=== PATIENT | male | born 1940 | race Caucasian/White ===

== ENCOUNTER 2021-09-09 11:10 | Inpatient (IN) ==
[2021-09-09] MEDS ORDERED: DEXAMETHASONE SOD INJ 4 MG/ML VIAL IV STA (11:49)
--- NOTE | 2021-09-09 11:51 | Emergency Department Note ---
Impression & Plan 2019 novel coronavirus-infected pneumonia (NCIP), Respiratory failure ED Provider Note Provider: Chaparro Jiménez MD DATE OF SERVICE: 09/09/2021 CHIEF COMPLAINT: Shortness of breath, weakness HISTORY OF PRESENT ILLNESS: Patient is a 80-year-old gentleman past medical history including asthma/COPD normally on 2 L of oxygen seen here 2 days ago and diagnosed with Covid pneumonia. Has been on increasing oxygen at the present and was on 10 L nasal cannula oxygen there with hypoxia developing today. Patient endorses some diffuse myalgias. Patient states he cannot tolerate a facemask for oxygen. States he has been eating and drinking less reports some diarrhea as well as loss of taste and smell. No syncope or trauma reported. No leg swelling reported. Patient has been on a course of steroids for the last several days. REVIEW OF SYSTEMS: A total of 10 review of systems was obtained and negative except as stated above in the HPI. PAST MEDICAL HISTORY: As noted above MEDICATIONS: Reviewed home medication list includes recent addition of steroids. SOCIAL HISTORY: Former smoker, long term inmate PHYSICAL EXAM: GENERAL: alert and oriented in no acute distress on stretcher fatigued in appearance guards present Head: normocephalic and atraumatic EYES: No injection, discharge or icterus. NECK: Trachea midline. ENT: Mucous membranes pink and moist. LUNGS: Airway patent. No retractions. Breath sounds clear with good air entry bilaterally. HEART: Regular rate and rhythm. No chest wall tenderness ABDOMEN: Soft and non-tender, without guarding or rebound. SKIN: Acyanotic, warm, dry EXTREMITIES: Without swelling, tenderness or deformity NEUROLOGICAL: No focal deficits moving all extremities No aphasia. No facial droop or slurred speech. EK bpm normal sinus rhythm. No PVC or PAC. No acute ST segment elevation noted with some nonspecific anterior T wave changes. QTC 411. CONTINUOUS CARDIAC MONITORING: was ordered and showed a heart rate of 70s-90s bpm in NSR Patient's laboratory studies and imaging reviewed. Differential includes Reactive airway disease, pneumonia, pneumothorax, COPD, CHF, infections, cardiac ischemia, pulmonary embolism, musculoskeletal, gastrointestinal, as well as other pathologies. IMPRESSION/MEDICAL DECISION MAKING: Patient recently diagnosed with Covid pneumonia. Was previously vaccinated. History of chronic underlying lung disease and oxygen usage. Symptoms been ongoing for 4 to 5 days at this time. Patient initially resist any mask usage and on significant nasal cannula oxygen. Discussed with respiratory availab ility of high flow oxygen. Chest x-ray and basic labs sent. CRP and D-dimer sent. No white blood cell count elevation. D-dimer minimally elevated but given the constellation of symptoms lives all the likely related to Covid and lower suspicion for PE given the clinical history and patient exam. Procalcitonin not significantly elevated. Troponin detectable and abnormal. Not having active chest pain. Chest x-ray for some inflammatory changes. Patient confirmed to be full code. Patient reports he would not tolerate a mask and as such high flow nasal cannula was implemented. Patient requires admission for further care. Given dexamethasone here additionally through the IV. Hospitalist was consulted. DIAGNOSIS: COVID-19 pneumonia, hypoxia DISPOSITION: Hospitalist will evaluate Patient was agreeable with this plan. Critical Care I have personally spent 33 minutes of critical care time in the direct management of this patient. This includes bedside care, interpretation of diagnostic studies, and testing, discussion with consultants, patient,, and ot her required patient management activities. These 33 minutes is in excess of all separately billable procedures. Past Med/Surg History Medical History (Updated 09/09/21 @ 16:08 by Chaparro Jiménez M.D.) Allergic rhinitis Benign hypertension Depression Dermatitis Extrinsic asthma Hyperlipidemia Reducible left inguinal hernia repaired x 2 Surgical History Hx of cholecystectomy Hx of right inguinal hernia repair Status post hernia repair Left Open Incarcerated Inguinal Hernia Repair with Mesh (Left) - Rohit Jimenez, DO, FAC Social History Smoking Status: Former smoker Tobacco Type: Cigarettes packs per day: 0.5; Years Smoked: 2; Hx Alcohol Use: No Hx Substance Use: No Preferred Language: Mozambican Current Living Situation: Other Current Living Situation Comment: Inmate Feels Safe at Home: Yes Allergies Allergies Allergy/AdvReac Type Severity Reaction Status Date / Time Penicillins Allergy Unknown ON SCI Verified 09/09/21 13:01 [facility] MED LIST Home Meds Home Medications Medication Instructions Recorded Confirmed atorvastatin 10 mg tablet 10 mg PO QAM 11/11/20 09/09/21 montelukast 10 mg tablet 10 mg PO QAM 11/11/20 09/09/21 sertraline 50 mg tablet 50 mg PO QAM 11/11/20 09/09/21 aspirin 81 mg chewable tablet 81 mg PO DAILY 09/07/21 09/09/21 levalbuterol tartrate 45 2 inh INHALATION QID PRN 09/07/21 09/09/21 mcg/actuation aerosol inhaler (Xopenex HFA) cholecalciferol (vitamin D3) 25 25 mcg PO QAM 09/09/21 09/09/21 mcg (1,000 unit) tablet (Vitamin D3) dexamethasone 6 mg tablet 6 mg PO QAM 09/09/21 09/09/21 zinc sulfate 50 mg zinc (220 mg) 50 mg PO BID 09/09/21 09/09/21 capsule (Zinc-220) Previous Rx's Medication Instructions Recorded ondansetron 4 mg disintegrating 4 mg PO Q6H PRN #14 tab 09/07/21 tablet Results & Data (ED) Vital Signs Vital Signs - 24 hr 09/09/21 10:56 09/09/21 11:37 09/09/21 11:50 Temperature 37.4 C 37.4 C Temperature Source Oral Oral Pulse Rate 91 H 91 H Pulse Rate [Right Finger] 91 H Pulse Rhythm Regular Pulse Rhythm [Right Finger] Regular Pulse Strength [Right Finger] Normal Respiratory Rate 24 18 20 Respiratory Effort / Characteristics Non-Labored Spontaneous Respiratory Depth Normal Blood Pressure 146/86 H Blood Pressure [Left Arm] 146/86 H Blood Pressure Mean 106 Blood Pressure Mean [Left Arm] 106 Blood Pressure Position [Left Arm] Lying Pulse Oximetry 88 L 70 L 71 L Oxygen Delivery Method Nasal Cannula Room Air Room Air Oxygen Flow Rate 10 Fraction of Inspired Oxygen Sepsis Recent Fever Within 48 Hours Yes Sepsis New/Unexplained Change in Mental Status No Sepsis Action Taken by Nursing No Action Required 09/09/21 11:55 09/09/21 12:56 Temperature Temperature Source Pulse Rate Pulse Rate [Right Finger] 88 85 Pulse Rhythm Pulse Rhythm [Right Finger] Pulse Strength [Right Finger] Respiratory Rate 24 24 Respiratory Effort / Characteristics Respiratory Depth Blood Pressure Blood Pressure [Left Arm] 127/71 Blood Pressure Mean Blood Pressure Mean [Left Arm] 89 Blood Pressure Position [Left Arm] Pulse Oximetry 93 90 Oxygen Delivery Method High Flow Nasal Cannula High Flow Nasal Cannula Oxygen Flow Rate 40 Fraction of Inspired Oxygen 100 Sepsis Recent Fever Within 48 Hours Sepsis New/Unexplained Change in Mental Status Sepsis Action Taken by Nursing Laboratory Data Result diagrams: 09/09/21 11:27 09/09/21 11:27 Lab Results 09/09/21 09/09/21 09/09/21 Range/Units 11:27 11:27 11:27 WBC 7.28 (4.8-10.8) K/uL RBC 5.41 (4.7-6.1) M/uL Hgb 16.6 D (14.0-18.0) g/dL Hct 47.9 (42-52) % MCV 88.5 (80-100) fL MCH 30.7 (25-34) pg MCHC 34.7 (32-36) g/dL RDW Std Deviation 45.4 (36.4-46.3) fL RDW Coeff of Ronald 13.8 (11.5-14.5) % Plt Count 140 (130-400) K/uL MPV 11.3 H (7.4-10.4) fL Immature Gran % (Auto) 0.1 % Neut % (Auto) 92.1 % Lymph % (Auto) 4.5 % Orange % (Auto) 3.3 % Eos % (Auto) 0.0 % Baso % (Auto) 0.0 % Neut # (Auto) 6.70 H (1.4-6.5) K/uL Lymph # (Auto) 0.33 L (1.2-3.4) K/uL Orange # (Auto) 0.24 (0.11-0.59) K/uL Eos # (Auto) 0.00 (0-0.5) K/uL Baso # (Auto) 0.00 (0-0.2) K/uL Immature Gran # (Auto) 0.01 (0.00-0.02) K/uL PT 10.3 (9.0-12.0) Seconds INR 1.0 (0.9-1.1) D-Dimer 990 H* (0-500) ug/L FEU Sodium 138 (136-145) mmol/L Potassium 4.6 (3.5-5.1) mmol/L Chloride 109 H (98-107) mmol/L Carbon Dioxide 23 (21-32) mmol/L Anion Gap 6.0 (3-11) BUN 35 H (7-18) mg/dl Creatinine 1.30 (0.6-1.4) mg/dl Est Cr Clr Drug Dosing 48.3 ml/min Est GFR ( Amer) 59.7 ml/min Est GFR (Non-Af Amer) 51.5 ml/min BUN/Creatinine Ratio 27.3 H (10-20) Glucose 120 H (70-99) mg/dl Calcium 9.1 D (8.5-10.1) mg/dl Magnesium 2.6 H (1.8-2.4) mg/dl Total Bilirubin 0.6 (0.2-1) mg/dl AST 53 H (15-37) U/L ALT 41 (12-78) Alkaline Phosphatase 70 (45-117) U/L Total Creatine Kinase 177 (39-308) U/L Troponin I 0.039 (0-0.045) ng/ml C-Reactive Protein 7.34 H (0-0.29) mg/dl Total Protein 7.6 D (6.4-8.2) gm/dl Albumin 3.1 L (3.4-5.0) gm/dl Globulin 4.5 H (2.5-4.0) gm/dl Albumin/Globulin Ratio 0.7 L (0.9-2) Procalcitonin (0-0.5) ng/ml TSH 1.110 (0.300-4.500) uIu/ml Specimen Hemolysis 09/09/21 Range/Units 11:27 WBC (4.8-10.8) K/uL RBC (4.7-6.1) M/uL Hgb (14.0-18.0) g/dL Hct (42-52) % MCV (80-100) fL MCH (25-34) pg MCHC (32-36) g/dL RDW Std Deviation (36.4-46.3) fL RDW Coeff of Ronald (11.5-14.5) % Plt Count (130-400) K/uL MPV (7.4-10.4) fL Immature Gran % (Auto) % Neut % (Auto) % Lymph % (Auto) % Orange % (Auto) % Eos % (Auto) % Baso % (Auto) % Neut # (Auto) (1.4-6.5) K/uL Lymph # (Auto) (1.2-3.4) K/uL Orange # (Auto) (0.11-0.59) K/uL Eos # (Auto) (0-0.5) K/uL Baso # (Auto) (0-0.2) K/uL Immature Gran # (Auto) (0.00-0.02) K/uL PT (9.0-12.0) Seconds INR (0.9-1.1) D-Dimer (0-500) ug/L FEU Sodium (136-145) mmol/L Potassium (3.5-5.1) mmol/L Chloride (98-107) mmol/L Carbon Dioxide (21-32) mmol/L Anion Gap (3-11) BUN (7-18) mg/dl Creatinine (0.6-1.4) mg/dl Est Cr Clr Drug Dosing ml/min Est GFR ( Amer) ml/min Est GFR (Non-Af Amer) ml/min BUN/Creatinine Ratio (10-20) Glucose (70-99) mg/dl Calcium (8.5-10.1) mg/dl Magnesium (1.8-2.4) mg/dl Total Bilirubin (0.2-1) mg/dl AST (15-37) U/L ALT (12-78) Alkaline Phosphatase (45-117) U/L Total Creatine Kinase (39-308) U/L Troponin I (0-0.045) ng/ml C-Reactive Protein (0-0.29) mg/dl Total Protein (6.4-8.2) gm/dl Albumin (3.4-5.0) gm/dl Globulin (2.5-4.0) gm/dl Albumin/Globulin Ratio (0.9-2) Procalcitonin 0.14 (0-0.5) ng/ml TSH (0.300-4.500) uIu/ml Specimen Hemolysis Administered Medications Discontinued Medications Dexamethasone (Dexamethasone Sod Inj 4 Mg/Ml Vial) 6 mg IV NOW STA Stop: 09/09/21 11:50 Last Admin: 09/09/21 12:12 Dose: 6 mg Documented by: [id number] Dexamethasone (Dexamethasone Sod Inj 4 Mg/Ml Vial) Confirm Administered Dose 4 mg .ROUTE .STK-MED ONE Stop: 09/09/21 14:50 Last Admin: 09/09/21 14:52 Dose: 4 mg Documented by: [id number] Dexamethasone 4 mg/ Syringe 1 mls @ 1 mls/min IV ONE ONE Stop: 09/09/21 13:34 Last Admin: 09/09/21 15:08 Dose: Not Given Documented by: [id number] Imaging Data Radiologist's Impression: Chest X-Ray 09/09/21 11:37 XR chest 1V portable CLINICAL HISTORY: weakness COMPARISON STUDY: Chest radiograph September 07, 2021. FINDINGS: No pneumothorax or pleural effusion is noted. There is severe emphysema. There is also possible underlying pulmonary fibrosis. Extensive bilateral mid and lower lung airspace opacities have increased since exam of September 07, 2021. IMPRESSION: Increase in bilateral mid and lower lung airspace opacities which favor pneumonia superimposed upon emphysema. Radiographic follow-up to ensure resolution is recommended. ACT 112: Negative or not required by law. Electronically signed by: Chace Latif M.D. 09/09/2021 12:22 PM Discharge Plan Visit Data Chief Complaint: Shortness of Breath/Dyspnea ED Provider: Chaparro Jiménez Discharge Problem: 2019 novel coronavirus-infected pneumonia (NCIP), Respiratory failure Patient Disposition: Admitted As Inpatient Discharge Instructions Interventions: ED Discharge Assessment Last Done: 09/09/21 15:51
[2021-09-09 11:59] LABS: Prothrombin Time 10.3 Seconds (9.0-12.0)
[2021-09-09 12:02] LABS: Hematocrit (blood only) 47.9 % (42-52); Hemoglobin 16.6 g/dL (14.0-18.0); Mean Corpuscular Hemoglobin 30.7 pg (25-34); Mean Corpuscular Hgb Conc 34.7 g/dL (32-36); Mean Corpuscular Volume 88.5 fL (80-100); Mean Platelet Volume 11.3 fL (7.4-10.4); Platelet Count 140 K/uL (130-400); RDW Coefficient of Variation 13.8 % (11.5-14.5); RDW Standard Deviation 45.4 fL (36.4-46.3); Red Blood Count 5.41 M/uL (4.7-6.1); White Blood Count 7.28 K/uL (4.8-10.8)
[2021-09-09 12:07] LABS: Albumin Level 3.1 gm/dl (3.4-5.0); BUN Creatinine Ratio 27.3 (10-20); Calcium 9.1 mg/dl (8.5-10.1); Creatinine Clr Calc Pharmacy 48.3 ml/min; Est GFR (African American) 59.7 ml/min; Est GFR (Non-African American) 51.5 ml/min; Magnesium 2.6 mg/dl (1.8-2.4); Potassium 4.6 mmol/L (3.5-5.1)
[2021-09-09 12:17] LABS: Immature Granulocytes # (auto) 0.01 K/uL (0.00-0.02); Immature Granulocytes % (auto) 0.1 %; Lymphocytes # (auto) 0.33 K/uL (1.2-3.4); Lymphocytes % (auto) 4.5 %; Monocytes # (auto) 0.24 K/uL (0.11-0.59); Monocytes % (auto) 3.3 %; Neutrophils % (auto) 92.1 %
[2021-09-09 12:18] LABS: Albumin Globulin Ratio 0.7 (0.9-2); Bilirubin,Total 0.6 mg/dl (0.2-1); C Reactive Protein 7.34 mg/dl (0-0.29); Globulin 4.5 gm/dl (2.5-4.0); Thyroid Stimulating Hormone 1.11 uIu/ml (0.300-4.500); Total Protein 7.6 gm/dl (6.4-8.2); Troponin I 0.039 ng/ml (0-0.045)
--- NOTE | 2021-09-09 12:24 | XRay Report ---
XR chest 1V portable CLINICAL HISTORY: weakness COMPARISON STUDY: Chest radiograph September 07, 2021. FINDINGS: No pneumothorax or pleural effusion is noted. There is severe emphysema. There is also poss ible underlying pulmonary fibrosis. Extensive bilateral mid and lower lung airspace opacities have in creased since exam of September 07, 2021. IMPRESSION: Increase in bilateral mid and lower lung airspace opacities which favor pneumonia superimposed upon e mphysema. Radiographic follow-up to ensure resolution is recommended. ACT 112: Negative or not required by law. Electronically signed by: Chace Latif M.D. 09/09/2021 12:22 PM
[2021-09-09 12:34] LABS: D Dimer 990 ug/L FEU (0-500)
--- NOTE | 2021-09-09 13:15 | History & Physical Report ---
Date of Service September 09, 2021 Assessment & Plan (1) Pneumonia due to COVID-19 virus: Plan: Due to the patient's worsening symptomatology and increasing oxygen requirements he will be admitted to the hospital. We will proceed as follows: We will place patient on a monitored bed We will follow serial labs We we will check a CRP tomorrow morning and based on these results may implement baricitinib We will maintain the patient on high flow oxygen titrating this based on his pulse oximetry (goal will be to maintain pulse ox 90% or greater) We will request a pulmonary consultation We will continue the patient on Decadron but increase to 10 mg intravenously daily; he has received 6 mg of intravenous Decadron thus far in the emergency department so we will administer an additional 4 mg at this time We will place the patient on Covid isolation precautions We will utilize bronchodilators as needed--budesonide nebulizers have been ordered We will utilize BiPAP at HS to help with alveolar recruitment While at the bedside I did discuss with the patient CODE STATUS and I specifically discussed with him if his respiratory status would deteriorate if he would prefer we utilize mechanical ventilation and he says he would be in favor of this. He will therefore be a level 1 full code We will utilize Lovenox for DVT prevention (2) Acute and chronic respiratory failure with hypoxia: (3) Hyperlipidemia: (4) Atopic dermatitis: History of Present Illness Chief Complaint: Shortness of breath Primary Care Provider: NEHAL López This is an 80-year-old male who presents to [facility] emergency department from a correctional facility. Patient was previously seen in the emergency department on 09/07/21 complaining of worsening shortness of breath along with nausea, vomiting, and diarrhea. Patient does note that the symptoms have been ongoing for several months but he does note that over the past approximately 2 to 3 weeks his symptoms have become worse. He was seen in the emergency department at the aforementioned date where he was tested for COVID-19 and was noted to be positive. Labs on this day include a CBC her white blood cell count was 3.1. His hemoglobin and hematocrit were 13.6 and 39.6 respectively. Platelet count was low at 102,000 a chemistry profile showed a sodium of 142. Potassium was noted to be 4.5, BUN was slightly elevated at 30 and his creatinine was noted to be within normal range. A chest x-ray at this time showed moderate to extensive bilateral airspace opacities compatible with pneumonia. During his visit emergency department the patient did receive nebulizers, guaifenesin, and Solu-Medrol. Clinical improvement was noted and it was felt the patient was stable for discharge back to his correctional facility. He was discharged with Decadron 6 mg daily. Patient represented to the emergency department today secondary to worsening shortness of breath. The patient has been having increasing oxygen requirements and was on as many as 10 L via nasal cannula with worsening hypoxia noted and therefore he was sent back to the emergency department. I questioned the patient on numerous symptoms and he does not note any fevers. He says he does have shortness of breath along with some pleuritic chest pain. He denies any cough. At the present time he denies any abdominal pain and he also denies any nausea, vomiting, or diarrhea. A chest x-ray today showed increase in bilateral lower lung space airspace opacities compatible with pneumonia. Labs today included a CBC were white blood cell count, hemoglobin, hematocrit, and platelet count were all within normal range. Chemistry profile did show his sodium, potassium, and creatinine were within normal range. A CRP was performed and was noted to be 7.34 Since arrival to the emergency department the patient has been placed on high flow oxygen and he has been given 6 mg of intravenous Decadron. Due to his worsening symptomatology and increasing oxygen reqirements admission was recommended. At the time of my interview the patient was resting in bedside. He did not appear to be in any overt distress at the time of my interview and was able to converse with me without becoming markedly dyspneic. Allergies Allergy/AdvReac Type Severity Reaction Status Date / Time Penicillins Allergy Unknown ON SCI Verified 09/09/21 13:01 [facility] MED LIST Home Medications Medication Instructions Recorded Confirmed Type atorvastatin 10 mg tablet 10 mg PO QAM 11/11/20 09/09/21 History montelukast 10 mg tablet 10 mg PO QAM 11/11/20 09/09/21 History sertraline 50 mg tablet 50 mg PO QAM 11/11/20 09/09/21 History aspirin 81 mg chewable tablet 81 mg PO DAILY 09/07/21 09/09/21 History levalbuterol tartrate 45 2 inh INHALATION QID PRN 09/07/21 09/09/21 History mcg/actuation aerosol inhaler (Xopenex HFA) ondansetron 4 mg disintegrating 4 mg PO Q6H PRN #14 tab 09/07/21 09/09/21 Rx tablet cholecalciferol (vitamin D3) 25 25 mcg PO QAM 09/09/21 09/09/21 History mcg (1,000 unit) tablet (Vitamin D3) dexamethasone 6 mg tablet 6 mg PO QAM 09/09/21 09/09/21 History zinc sulfate 50 mg zinc (220 mg) 50 mg PO BID 09/09/21 09/09/21 History capsule (Zinc-220) Past Med/Surg History Medical History (Updated 09/09/21 @ 15:19 by Wei Ruff MD) Allergic rhinitis Benign hypertension Depression Dermatitis Extrinsic asthma Hyperlipidemia Reducible left inguinal hernia repaired x 2 Surgical History Hx of cholecystectomy Hx of right inguinal hernia repair Status post hernia repair Left Open Incarcerated Inguinal Hernia Repair with Mesh (Left) - Rohit Jimenez, DO, FAC Social History Smoking Status: Former smoker Tobacco Type: Cigarettes packs per day: 0.5; Years Smoked: 2; Hx Alcohol Use: No Hx Substance Use: No Preferred Language: Lithuanian Current Living Situation: Other Current Living Situation Comment: Inmate Feels Safe at Home: Yes Review of Systems Constitutional: + body aches and + fatigue; no fever and no chills Eyes: no diplopia Ear, Nose, Mouth, Throat: no ear pain and no sore throat Respiratory: + dyspnea and + pain on inspiration; no cough Cardiovascular: no chest pain Gastrointestinal: no abdominal pain Genitourinary: no dysuria Musculoskeletal: no back pain Integumentary: no rash Neurologic: no localized weakness Physical Exam Constitutional: well developed and well nourished; no acute distress Eyes: no conjunctival abnormality ENMT: Ears: + hearing impairment Dry mucous membranes noted Neck: trachea midline No JVD Respiratory: Breath sounds are present bilaterally with an occasional expiratory wheeze. Patient was not using accessory muscles to aid in respiration. He was utilizing high flow oxygen via nasal cannula at the time of my interview. Sounds were noted to be slightly decreased at the bases. Cardiovascular: Rate/Rhythm: regular rate and regular rhythm Gastrointestinal (Abdomen): Abdomen is rotund but soft. There is no pain with palpation Musculoskeletal: No calf tenderness. Trace lower extremity edema is noted. Skin: no rashes Neurologic: moves all extremities Psychiatric: A+Ox3, euthymic affect Results & Data Results & Data ([facility]) Vital Signs (Past 12 Hours) Vital Signs Temp Pulse Pulse Resp BP BP Pulse Ox 09/09/21 11:55 88 24 93 09/09/21 11:50 37.4 C 91 H 20 146/86 H 71 L 09/09/21 11:37 91 H 18 70 L 09/09/21 10:56 37.4 C 91 H 24 146/86 H 88 L Diagnostic Findings XR chest 1V portable CLINICAL HISTORY: weakness COMPARISON STUDY: Chest radiograph September 07, 2021. FINDINGS: No pneumothorax or pleural effusion is noted. There is severe emphysema. There is also possible underlying pulmonary fibrosis. Extensive bilateral mid and lower lung airspace opacities have increased since exam of September 07, 2021. IMPRESSION: Increase in bilateral mid and lower lung airspace opacities which favor pneumonia superimposed upon emphysema. Radiographic follow-up to ensure resolution is recommended. Medications Administered ER Medications Given: Dexamethasone 10mg IV Code Status & VTE Plan Code Status Full VTE Prophylaxis Plan VTE Prophylaxis will be ordered: Yes Supervising Physician Co-Signing Physician Notes I personally saw and examined the patient. I verified all macdonald points and agree with Adam Villanueva PA-C with the following exceptions and/or additions: Ricky Rao is an 80 year old male who presents to the ER with acute hypoxic respiratory failure due to COVID-19 pneumonia. He is vaccinated with [employer] Josse vaccination in January 2021. SARS/COV-2 test positive on 09/05/21. Unfortunately the patient is unable to give an accurate history as he feels he has been unwell with COVID for last 6 months however does report starting to have fevers on 09/05. Associated diarrhea. Per discussion with [facility] first day of illness was when he was tested on 09/05/21. O/E Dry mucus membranes, HS 1+2, no murmurs, trace peripheral edema, poor air entry to bases, no wheezing, abdomen SNT EKG - TW flattening replaced TWI in anterior leads A/P Acute on chronic hypoxic respiratory failure - 2LPM O2 at baseline. Continue on high flow, currently maintaining saturations > 88% on 40LPM O2, FiO2 100%. ABG pending. Prone as able. Given high risk of intubation will consult pulmonology to optimize patient treatment. No indication for antibiotics. COVID-19 pneumonia - after discussion with pulmonology given CRP close to 7.5 recommending baricitinib. Will continue dexamethasone 6mg IV daily (started 09/07). Procalcitonin negative. Atopic dermatitis - no need for topical steroids while on dexamethasone Depression/anxiety - continue sertraline 50mg PO daily Extrinsic asthma / COPD - no acute exacerbation suspected. Start budesonide nebilizers BID. I also personally had code status conversation with the patient given high risk of intubation and he wished to be for full resuscitation at this time. PG Care Time/CCT Total # of Minutes Spent Total Time Spent with Patient: Total time spent is greater than 50% in coordination of care (as documented) at patient's floor/unit and/or counseling patient: Coding Level of Care Code 84865 Initial Inpt Care Lvl 3 Diagnoses Pneumonia due to COVID-19 virus U07.1; J12.82 Hyperlipidemia E78.5 Atopic dermatitis L20.9 Acute and chronic respiratory failure with hypoxia J96.21
[2021-09-09] MEDS ORDERED: dexAMETHasone 4 MG in SYRINGE 0 ML IV ONE (13:33)
--- NOTE | 2021-09-09 14:02 | Pulmonary Consultation ---
Date of Consultation September 09, 2021 Assessment & Plan (1) Pneumonia due to COVID-19 virus: COVID 19 pneumonia - does not appear to have co-infection at this time secondary to normal WBC, NLR, and PCT - Decadron 6mg IV daily - Adding Barcitinib now is OK - CPAP/BiPAP at night - HFNC wean to support SPO2 88-92% (2) COPD (chronic obstructive pulmonary disease): COPD- Scheduled nebulizers with levalbuterol, continue with Pulmicort Respules nebs q12, added Anoro elipta 6.25/25 - steroids as above - no role for Azithromycin at this time as he does not have hx of multiple exacerbations (3) Hypoxia: Hypoxia with respiratory failure - Support as above - High likelihood of intubation with underlying lung disease (4) Hyperlipidemia: History of Present Illness Reason for Consultation: COVID 19, COPD, Hypoxia Requesting Physician: Dr. Ruff Attending Physician: Dr. Ruff History of Present Illness 80 YOM prisoner with past pulmonary history of: COPD, Emphysema, Previous smoker quit 4 years ago, ? underlying fibrosis. Patient comes to the hospital today for worsening dyspnea and hypoxia. He was diagnosed with COVID 19 on 09/07/21, but reportedly was in the enfirmery for a few days prior to that. Patient is unable to voice when he actually started feeling worse. For his COPD the patient was on Levalbuterol inhalers and Montelukast and on 2L NC. He denies ever being hospitalized because of his COPD. He has noted increase in dyspnea and oxygen requirements. He endorses that he has increased cough, but no change in his sputum. Patient is currently on HFNC at 40L with 100% FIo2 with SPO2 90%. He is not overtly dyspneic but noted with bilateral opacities on his CXR. He may have an underlying fibrosis or ILD but difficult to tell with COVID and his Emphysema. His CRP is borderline at 7.3 and will likely be > by tomorrow, he is Afebrile, and PCT is negative. Recommendations: Baricitinib, Decrease Decadron back to 6mg, CPAP/BIPAP overnight to prevent de-recruitment, Spo2 goal 88-92%, Agree with Pulmicort Respules, scheduled nebulizers, and will add on Anoro Elipta. We will follow as he has a high likelihood of intubation. Allergies Allergy/AdvReac Type Severity Reaction Status Date / Time Penicillins Allergy Unknown ON SCI Verified 09/09/21 13:01 [facility] Home Medications Medication Instructions Recorded Confirmed Type atorvastatin 10 mg tablet 10 mg PO QAM 11/11/20 09/09/21 History montelukast 10 mg tablet 10 mg PO QAM 11/11/20 09/09/21 History sertraline 50 mg tablet 50 mg PO QAM 11/11/20 09/09/21 History aspirin 81 mg chewable tablet 81 mg PO DAILY 09/07/21 09/09/21 History levalbuterol tartrate 45 2 inh INHALATION QID PRN 09/07/21 09/09/21 History mcg/actuation aerosol inhaler (Xopenex HFA) ondansetron 4 mg disintegrating 4 mg PO Q6H PRN #14 tab 09/07/21 09/09/21 Rx tablet cholecalciferol (vitamin D3) 25 25 mcg PO QAM 09/09/21 09/09/21 History mcg (1,000 unit) tablet (Vitamin D3) dexamethasone 6 mg tablet 6 mg PO QAM 09/09/21 09/09/21 History zinc sulfate 50 mg zinc (220 mg) 50 mg PO BID 09/09/21 09/09/21 History capsule (Zinc-220) Patient History Medical History (Updated 09/09/21 @ 15:25 by JAC Bloom) Allergic rhinitis Benign hypertension Depression Dermatitis Extrinsic asthma Hyperlipidemia Reducible left inguinal hernia repaired x 2 Surgical History Hx of cholecystectomy Hx of right inguinal hernia repair Status post hernia repair Left Open Incarcerated Inguinal Hernia Repair with Mesh (Left) - Rohit Jimenez, DO, FAC Social History Smoking Status: Former smoker Tobacco Type: Cigarettes packs per day: 0.5; Years Smoked: 2; Hx Alcohol Use: No Hx Substance Use: No Preferred Language: Cymraes Current Living Situation: Other Current Living Situation Comment: Inmate Feels Safe at Home: Yes Review of Systems Review of Systems: REVIEW OF SYSTEMS: Constitutional: No fever, sweats or chills Eyes: No diplopia, no worsening or blurred vision ENT: normal hearing, no trouble swallowing Respiratory: (+) cough, sputum, dyspnea at rest or on exertion Cardiovascular: No chest pain, tightness or palpitations Abdomen: No pain, nausea, vomiting, diarrhea or constipation Musculoskeletal: (+) joint pain, calf pain, swelling Neurologic: No weakness, numbness/tingling, or balance problems Psychiatric: No anxiety or depression Skin: (+) scabs to abdomen Physical Exam Physical Exam: PHYSICAL EXAM: General: awake, alert, no apparent distress Head: Normocephalic, atraumatic ENT: PERRL, EOMI, no pharyngeal exudate, mucous membranes moist Neuro: AAO x 3, speech clear and appropriate, strength intact bilaterally 5/5, sensation intact and equal all extremities and dermatomes, no pronator drift Chest: equal rise and fall of the chest, fine crackles throughout lower lung serrato, no wheezing, decent air movement Cardiac: Regular rate and rhythm, telemetry reviewed, skin warm dry, cap refill <3 seconds, peripheral pulses +2 no JVD, no murmur, no edema GI: NABS x 4 quadrants, soft, nontender to palpation, no rebound, guarding or tenderness : Spontaneously voiding, no pain, no CVA tenderness, Extremities: Normal inspection, no peripheral edema or erythema, calfs nontender to palpation Psych: Normal mood and affect Skin: no rash or erythema Results & Data Results & Data ([facility]) Vital Signs (Past 12 Hours) Vital Signs Temp Pulse Pulse Resp BP BP Pulse Ox 09/09/21 12:56 85 24 127/71 90 09/09/21 11:55 88 24 93 09/09/21 11:50 37.4 C 91 H 20 146/86 H 71 L 09/09/21 11:37 91 H 18 70 L 09/09/21 10:56 37.4 C 91 H 24 146/86 H 88 L Laboratory Results Abnormal lab results 09/09/21 09/09/21 09/09/21 Range/Units 11:27 11:27 11:27 MPV 11.3 H (7.4-10.4) fL Neut # (Auto) 6.70 H (1.4-6.5) K/uL Lymph # (Auto) 0.33 L (1.2-3.4) K/uL D-Dimer 990 H* (0-500) ug/L FEU Chloride 109 H (98-107) mmol/L BUN 35 H (7-18) mg/dl BUN/Creatinine Ratio 27.3 H (10-20) Glucose 120 H (70-99) mg/dl Magnesium 2.6 H (1.8-2.4) mg/dl AST 53 H (15-37) U/L C-Reactive Protein 7.34 H (0-0.29) mg/dl Albumin 3.1 L (3.4-5.0) gm/dl Globulin 4.5 H (2.5-4.0) gm/dl Albumin/Globulin Ratio 0.7 L (0.9-2) Diagnostic Findings Chest X-Ray 09/09/21 11:37 XR chest 1V portable CLINICAL HISTORY: weakness COMPARISON STUDY: Chest radiograph September 07, 2021. FINDINGS: No pneumothorax or pleural effusion is noted. There is severe emphysema. There is also possible underlying pulmonary fibrosis. Extensive bilateral mid and lower lung airspace opacities have increased since exam of September 07, 2021. IMPRESSION: Increase in bilateral mid and lower lung airspace opacities which favor pneumonia superimposed upon emphysema. Radiographic follow-up to ensure resolution is recommended. ACT 112: Negative or not required by law. Electronically signed by: Chace Latif M.D. 09/09/2021 12:22 PM Medications Administered Home Medications atorvastatin 10 mg tablet 10 mg PO QAM 11/11/20 [History Confirmed 09/09/21] montelukast 10 mg tablet 10 mg PO QAM 11/11/20 [History Confirmed 09/09/21] sertraline 50 mg tablet 50 mg PO QAM 11/11/20 [History Confirmed 09/09/21] aspirin 81 mg chewable tablet 81 mg PO DAILY 09/07/21 [History Confirmed 09/09/21] levalbuterol tartrate 45 mcg/actuation aerosol inhaler (Xopenex HFA) 2 inh INHALATION QID PRN 09/07/21 [History Confirmed 09/09/21] ondansetron 4 mg disintegrating tablet 4 mg PO Q6H PRN #14 tab 09/07/21 [Rx Confirmed 09/09/21] cholecalciferol (vitamin D3) 25 mcg (1,000 unit) tablet (Vitamin D3) 25 mcg PO QAM 09/09/21 [History Confirmed 09/09/21] dexamethasone 6 mg tablet 6 mg PO QAM 09/09/21 [History Confirmed 09/09/21] zinc sulfate 50 mg zinc (220 mg) capsule (Zinc-220) 50 mg PO BID 09/09/21 [History Confirmed 09/09/21] Discontinued Medications Dexamethasone (Dexamethasone Sod Inj 4 Mg/Ml Vial) 6 mg IV NOW STA Stop: 09/09/21 11:50 Last Admin: 09/09/21 12:12 Dose: 6 mg Documented by: [id number] ECG Additional Comments: Normal sinus rhythm Left anterior fascicular block Cannot rule out Anterior infarct , age undetermined Abnormal ECG When compared with ECG of 07-SEP-2021 19:22, Nonspecific T wave abnormality has replaced inverted T waves in Anterior leads PG Care Time/CCT Total # of Minutes Spent Total Time Spent with Patient: Total time spent is greater than 50% in coordination of care (as documented) at patient's floor/unit and/or counseling patient: Coding Level of Care Code 73849 Initial Inpt Care Lvl 3 Diagnoses Pneumonia due to COVID-19 virus U07.1; J12.82 COPD (chronic obstructive pulmonary disease) J44.9 Hyperlipidemia E78.5 Hypoxia R09.02
[2021-09-09 14:47] LABS: Base Excess ABG -2.6 mEq/L (-9-1.8); HCO3 ABG 20 mmol/L (19-24); Oxygen Saturation ABG 93.7 % (90-95); PCO2 ABG 30 mmHg (35-46); PO2 ABG 109 mmHg (80-95); pH ABG 7.45 (7.35-7.45)
[2021-09-09 14:48] LABS: Allen Test Pos (Pos)
[2021-09-09] MEDS ORDERED: DEXAMETHASONE SOD INJ 4 MG/ML VIAL ONE (14:49)
[2021-09-09] MEDS ORDERED: ONDANSETRON INJ 2 MG/ML 2 ML VIAL IV PRN (15:54)
[2021-09-09] MEDS ORDERED: LEVALBUTEROL TARTRATE 15 GM HFA.AER.AD INH PRN (15:54)
[2021-09-09] MEDS ORDERED: dexAMETHasone**PF** 10 MG/ML VIAL IV ONE (15:54)
[2021-09-09 16:59] LABS: Appearance Urine Clear (Clear); Bacteria Urine Automated Negative (Negative); Bilirubin Urine Negative (Negative); Blood Urine 2+ (Negative); Color Urine Dark Yellow; Glucose Urine UA Negative (Negative); Ketones Urine Negative (Negative); Leukocyte Esterase Urine Negative (Negative); Nitrite Urine Negative (Negative); Protein Urine 1+ (Negative); Specific Gravity Urine 1.024 (1.000-1.030); Urobilinogen Urine Negative (Negative)
[2021-09-09] MEDS: 2mg Daily x 14 days (eGFR 30-59 mL/min/1.73m2) PO SCH (17:29)
[2021-09-09] MEDS: LEVALBUTEROL HCL 0.63 MG/3 ML NEB NEB SCH (17:54)
[2021-09-09] MEDS: BUDESONIDE 0.5 MG/2 ML VIAL (PULMICORT) NEB SCH (17:54)
[2021-09-09] MEDS: ENOXAPARIN INJ 40 MG/0.4 ML SYR SQ SCH (21:23)
[2021-09-09] MEDS: ZINC SULFATE 220 MG CAPSULE PO SCH (21:25)
[2021-09-10] MEDS: LEVALBUTEROL HCL 0.63 MG/3 ML NEB NEB SCH ×4 (01:05→20:01)
[2021-09-10] MEDS: BUDESONIDE 0.5 MG/2 ML VIAL (PULMICORT) NEB SCH ×2 (06:05→20:01)
[2021-09-10 07:02] LABS: Hematocrit (blood only) 45.6 % (42-52); Hemoglobin 15.3 g/dL (14.0-18.0); Immature Granulocytes # (auto) 0.01 K/uL (0.00-0.02); Immature Granulocytes % (auto) 0.2 %; Lymphocytes # (auto) 0.31 K/uL (1.2-3.4); Lymphocytes % (auto) 7.1 %; Mean Corpuscular Hemoglobin 30.1 pg (25-34); Mean Corpuscular Hgb Conc 33.6 g/dL (32-36); Mean Corpuscular Volume 89.8 fL (80-100); Mean Platelet Volume 10.7 fL (7.4-10.4); Monocytes # (auto) 0.28 K/uL (0.11-0.59); Monocytes % (auto) 6.4 %; Neutrophils # (auto) 3.79 K/uL (1.4-6.5); Neutrophils % (auto) 86.3 %; Platelet Count 125 K/uL (130-400); RDW Coefficient of Variation 13.8 % (11.5-14.5); Red Blood Count 5.08 M/uL (4.7-6.1); White Blood Count 4.39 K/uL (4.8-10.8)
[2021-09-10 07:31] LABS: BUN Creatinine Ratio 35.9 (10-20); C Reactive Protein 5.53 mg/dl (0-0.29); Calcium 8.6 mg/dl (8.5-10.1); Creatinine Clr Calc Pharmacy 64.7 ml/min; Est GFR (African American) 85.1 ml/min; Est GFR (Non-African American) 73.4 ml/min; Potassium 4.9 mmol/L (3.5-5.1)
[2021-09-10] MEDS ORDERED: ENOXAPARIN INJ 40 MG/0.4 ML SYR SQ SCH (09:00)
[2021-09-10] MEDS ORDERED: dexAMETHasone 10 MG in SYRINGE 0 ML IV SCH (09:00)
--- NOTE | 2021-09-10 09:14 | Hospitalist Progress Note ---
Date of Service September 10, 2021 Assessment & Plan (1) Pneumonia due to COVID-19 virus: Plan: COVID 19 pneumonia - does not appear to have co-infection at this time secondary to normal WBC, NLR, and PCT Procal negative, no abx at this time. No prior hospitalization for such. Recently seen in ER / and d/c on dexamethasone 6mg daily prior to needing hospitalized for worsening SOB/O2 requirements. CT chest with pulm fibrosis at that time Dexamethasone 6mg (given extra 4mg on admission for total 10mg) --> continues on dexamethasone 6mg daily Continue baricitinib daily or until intubated CRP 5 from 7 [place] NC today --> placed on CPAP/BiPAP this afternoon by pulmonary. Had been tolerating being prone without much issue but recs to continue CPAP/BiPAP at night Titrate support SpO2 88-92% Added saline nasal spray, afrin for nasal congestion Pulmonary saw this afternoon and patient confirmed would not want intubated. Given underlying lung disease, poor prognosis if needing for sudden decompensation given underlying lung disease with mortality reported 40-50% Supportive care continue pulmicort nebs BID, xopenex Q6HR, Anoro ellipta 1 puff daily Will give lasix 20mg IV x 1 now -- monitor response/kidney function Pulmonary following-- appreciate assistance/recommendations (2) COPD (chronic obstructive pulmonary disease): Plan: COPD- Scheduled nebulizers with levalbuterol, continue with Pulmicort Respules nebs q12, added Anoro elipta 6.25/25 - steroids as above - no role for Azithromycin at this time as he does not have hx of multiple exacerbations tx as above (3) Hypoxia: Plan: Hypoxia with respiratory failure - Support as above - High likelihood of intubation with underlying lung disease Now on CPAP/BiPAP at night, HFNC to maintain sats 88-92% --> Patient had been on 2-10L NC on day of admission with increasing O2 requirements Pulm following -- high risk for decompensation although declining intubation at this time and discussed with patient by pulm today (4) Hyperlipidemia: Plan: continue statin (5) Depression: Plan: continue sertraline daily (6) Allergic rhinitis: Plan: hx of continue singulair added saline nasal, afrin per recs by pulm Plan: Lovenox SQ DVT prophylaxis CPAP/BiPAP at night, HFNC to maintain sats 88-92% Pulm following Continued inpatient stay Admission and Anticipated Discharge Date Admission Date: September 09, 2021 Supervising Physician Co-Signing Physician Notes I personally examined the patient and verified all macdonald points of history and exam, discussed case, and agree with decision making with Greg UMAÑA Breathing feels about the same now that he is on BiPAP as it did earlier. Fortunately not worse. Worries about being able to eat. Vitals noted, in general he appears surprisingly comfortable on the BiPAP, lying fairly still but mostly appearing to be resting comfortably. HEENT normocephalic atraumatic mucous membranes are moist as best as I can assess through the mask. Lungs show faint Rales somewhat diffusely probably more prominent at the bases, no accessory muscles good effort. Severe hypoxic respiratory failure related to Covid pneumoniacontinue Decadron and baricitinib, continue supportive care. Lasix. Continue to follow closely. Appreciate pulmonary critical care support. lovenox DVT proph Subjective Patient continued hold in ER this AM awaiting bed. Continued decreased appetitie 2nd to loss taste/smell hx underlying lung disease and remains level 1 however declined intubation if needed when asked by provider this afternoon yesterday had been on 2-10L NC however increased to 40L hi-flow today and this afternoon was proning without issues, but then transitioned to CPAP Pulmonary following and wanting to add nasal spray and afrin -- patient with complaints of nasal congestion. Continued issues with shortness of breath. Tolerating CPAP/BiPAP and actually looking to be stable at this time per discussion with supervising provider who stopped to see this afternoon as well. Review of Systems Review of Systems: All systems reviewed & are unremarkable except as noted in HPI & below Physical Exam Physical Exam: awake, alert, oriented, no acute distress, on hi-stephanie nasal cannula with SpO2 88-92% eyes anicteric, pupils equal and reactive ent: mmm, trachea midline without deviation resp: no accessory muscle use, RR 24, fine scattered crackles, faint wheezing, trace b/l LE edema, on hi-flow nasal cannula gi +BS, soft, nontender no adler skin; warm, dry psych; alert , oriented x 3, cooperative skin without rash or obvious lesion Results & Data Results & Data ([facility]) Vital Signs (Past 12 Hours) Vital Signs Pulse Resp BP Pulse Ox 09/10/21 06:07 65 16 93 09/10/21 03:10 64 18 88 L 09/10/21 03:08 68 22 131/72 90 09/09/21 23:28 71 22 133/78 91 09/09/21 22:52 70 15 93 Laboratory Results 09/10/21 09/10/21 09/09/21 Range/Units 06:33 06:33 16:35 WBC 4.39 L (4.8-10.8) K/uL RBC 5.08 (4.7-6.1) M/uL Hgb 15.3 (14.0-18.0) g/dL Hct 45.6 (42-52) % MCV 89.8 (80-100) fL MCH 30.1 (25-34) pg MCHC 33.6 (32-36) g/dL RDW Std Deviation 46.0 (36.4-46.3) fL RDW Coeff of Ronald 13.8 (11.5-14.5) % Plt Count 125 L (130-400) K/uL MPV 10.7 H (7.4-10.4) fL Immature Gran % (Auto) 0.2 % Neut % (Auto) 86.3 % Lymph % (Auto) 7.1 % Ponce % (Auto) 6.4 % Eos % (Auto) 0.0 % Baso % (Auto) 0.0 % Neut # (Auto) 3.79 (1.4-6.5) K/uL Lymph # (Auto) 0.31 L (1.2-3.4) K/uL Ponce # (Auto) 0.28 (0.11-0.59) K/uL Eos # (Auto) 0.00 (0-0.5) K/uL Baso # (Auto) 0.00 (0-0.2) K/uL Immature Gran # (Auto) 0.01 (0.00-0.02) K/uL PT (9.0-12.0) Seconds INR (0.9-1.1) D-Dimer (0-500) ug/L FEU ABG pH (7.35-7.45) ABG pCO2 (35-46) mmHg ABG pO2 (80-95) mmHg ABG HCO3 (19-24) mmol/L ABG O2 Saturation (90-95) % ABG Base Excess (-9-1.8) mEq/L Herbert Test (Pos) Barometric Pressure mm/Hg Oxygen Given Sodium 141 (136-145) mmol/L Potassium 4.9 (3.5-5.1) mmol/L Chloride 112 H (98-107) mmol/L Carbon Dioxide 23 (21-32) mmol/L Anion Gap 6.0 (3-11) BUN 35 H (7-18) mg/dl Creatinine 0.97 D (0.6-1.4) mg/dl Est Cr Clr Drug Dosing 64.7 ml/min Est GFR ( Amer) 85.1 ml/min Est GFR (Non-Af Amer) 73.4 ml/min BUN/Creatinine Ratio 35.9 H (10-20) Glucose 119 H (70-99) mg/dl Calcium 8.6 (8.5-10.1) mg/dl Magnesium (1.8-2.4) mg/dl Total Bilirubin (0.2-1) mg/dl AST (15-37) U/L ALT (12-78) Alkaline Phosphatase (45-117) U/L Total Creatine Kinase (39-308) U/L Troponin I (0-0.045) ng/ml C-Reactive Protein 5.53 H (0-0.29) mg/dl Total Protein (6.4-8.2) gm/dl Albumin (3.4-5.0) gm/dl Globulin (2.5-4.0) gm/dl Albumin/Globulin Ratio (0.9-2) Procalcitonin (0-0.5) ng/ml TSH (0.300-4.500) uIu/ml Specimen Hemolysis Urine Color Dark Yellow Urine Appearance Clear (Clear) Urine pH 5.0 (4.5-7.5) Ur Specific Lincoln 1.024 (1.000-1.030) Urine Protein 1+ H (Negative) Urine Glucose (UA) Negative (Negative) Urine Ketones Negative (Negative) Urine Blood 2+ H (Negative) Urine Nitrite Negative (Negative) Urine Bilirubin Negative (Negative) Urine Urobilinogen Negative (Negative) Ur Leukocyte Esterase Negative (Negative) Urine WBC (Auto) 1-5 (0-5) /hpf Urine RBC (Auto) 10-30 H (0-4) /hpf U Hyaline Cast (Auto) 1-5 (0-5) /lpf U Epithel Cells (Auto) 10-20 H (0-5) /lpf Urine Bacteria (Auto) Negative (Negative) Urine Yeast Not Reportable 09/09/21 09/09/21 09/09/21 Range/Units 14:37 11:27 11:27 WBC (4.8-10.8) K/uL RBC (4.7-6.1) M/uL Hgb (14.0-18.0) g/dL Hct (42-52) % MCV (80-100) fL MCH (25-34) pg MCHC (32-36) g/dL RDW Std Deviation (36.4-46.3) fL RDW Coeff of Ronald (11.5-14.5) % Plt Count (130-400) K/uL MPV (7.4-10.4) fL Immature Gran % (Auto) % Neut % (Auto) % Lymph % (Auto) % Ponce % (Auto) % Eos % (Auto) % Baso % (Auto) % Neut # (Auto) (1.4-6.5) K/uL Lymph # (Auto) (1.2-3.4) K/uL Ponce # (Auto) (0.11-0.59) K/uL Eos # (Auto) (0-0.5) K/uL Baso # (Auto) (0-0.2) K/uL Immature Gran # (Auto) (0.00-0.02) K/uL PT (9.0-12.0) Seconds INR (0.9-1.1) D-Dimer (0-500) ug/L FEU ABG pH 7.45 (7.35-7.45) ABG pCO2 30 L (35-46) mmHg ABG pO2 109 H (80-95) mmHg ABG HCO3 20 (19-24) mmol/L ABG O2 Saturation 93.7 (90-95) % ABG Base Excess -2.6 (-9-1.8) mEq/L Herbert Test Pos (Pos) Barometric Pressure 733.2 mm/Hg Oxygen Given 40% Sodium 138 (136-145) mmol/L Potassium 4.6 (3.5-5.1) mmol/L Chloride 109 H (98-107) mmol/L Carbon Dioxide 23 (21-32) mmol/L Anion Gap 6.0 (3-11) BUN 35 H (7-18) mg/dl Creatinine 1.30 (0.6-1.4) mg/dl Est Cr Clr Drug Dosing 48.3 ml/min Est GFR ( Amer) 59.7 ml/min Est GFR (Non-Af Amer) 51.5 ml/min BUN/Creatinine Ratio 27.3 H (10-20) Glucose 120 H (70-99) mg/dl Calcium 9.1 D (8.5-10.1) mg/dl Magnesium 2.6 H (1.8-2.4) mg/dl Total Bilirubin 0.6 (0.2-1) mg/dl AST 53 H (15-37) U/L ALT 41 (12-78) Alkaline Phosphatase 70 (45-117) U/L Total Creatine Kinase 177 (39-308) U/L Troponin I 0.039 (0-0.045) ng/ml C-Reactive Protein 7.34 H (0-0.29) mg/dl Total Protein 7.6 D (6.4-8.2) gm/dl Albumin 3.1 L (3.4-5.0) gm/dl Globulin 4.5 H (2.5-4.0) gm/dl Albumin/Globulin Ratio 0.7 L (0.9-2) Procalcitonin 0.14 (0-0.5) ng/ml TSH 1.110 (0.300-4.500) uIu/ml Specimen Hemolysis Urine Color Urine Appearance (Clear) Urine pH (4.5-7.5) Ur Specific Lincoln (1.000-1.030) Urine Protein (Negative) Urine Glucose (UA) (Negative) Urine Ketones (Negative) Urine Blood (Negative) Urine Nitrite (Negative) Urine Bilirubin (Negative) Urine Urobilinogen (Negative) Ur Leukocyte Esterase (Negative) Urine WBC (Auto) (0-5) /hpf Urine RBC (Auto) (0-4) /hpf U Hyaline Cast (Auto) (0-5) /lpf U Epithel Cells (Auto) (0-5) /lpf Urine Bacteria (Auto) (Negative) Urine Yeast 09/09/21 09/09/21 Range/Units 11:27 11:27 WBC 7.28 (4.8-10.8) K/uL RBC 5.41 (4.7-6.1) M/uL Hgb 16.6 D (14.0-18.0) g/dL Hct 47.9 (42-52) % MCV 88.5 (80-100) fL MCH 30.7 (25-34) pg MCHC 34.7 (32-36) g/dL RDW Std Deviation 45.4 (36.4-46.3) fL RDW Coeff of Ronald 13.8 (11.5-14.5) % Plt Count 140 (130-400) K/uL MPV 11.3 H (7.4-10.4) fL Immature Gran % (Auto) 0.1 % Neut % (Auto) 92.1 % Lymph % (Auto) 4.5 % Ponce % (Auto) 3.3 % Eos % (Auto) 0.0 % Baso % (Auto) 0.0 % Neut # (Auto) 6.70 H (1.4-6.5) K/uL Lymph # (Auto) 0.33 L (1.2-3.4) K/uL Ponce # (Auto) 0.24 (0.11-0.59) K/uL Eos # (Auto) 0.00 (0-0.5) K/uL Baso # (Auto) 0.00 (0-0.2) K/uL Immature Gran # (Auto) 0.01 (0.00-0.02) K/uL PT 10.3 (9.0-12.0) Seconds INR 1.0 (0.9-1.1) D-Dimer 990 H* (0-500) ug/L FEU ABG pH (7.35-7.45) ABG pCO2 (35-46) mmHg ABG pO2 (80-95) mmHg ABG HCO3 (19-24) mmol/L ABG O2 Saturation (90-95) % ABG Base Excess (-9-1.8) mEq/L Herbert Test (Pos) Barometric Pressure mm/Hg Oxygen Given Sodium (136-145) mmol/L Potassium (3.5-5.1) mmol/L Chloride (98-107) mmol/L Carbon Dioxide (21-32) mmol/L Anion Gap (3-11) BUN (7-18) mg/dl Creatinine (0.6-1.4) mg/dl Est Cr Clr Drug Dosing ml/min Est GFR ( Amer) ml/min Est GFR (Non-Af Amer) ml/min BUN/Creatinine Ratio (10-20) Glucose (70-99) mg/dl Calcium (8.5-10.1) mg/dl Magnesium (1.8-2.4) mg/dl Total Bilirubin (0.2-1) mg/dl AST (15-37) U/L ALT (12-78) Alkaline Phosphatase (45-117) U/L Total Creatine Kinase (39-308) U/L Troponin I (0-0.045) ng/ml C-Reactive Protein (0-0.29) mg/dl Total Protein (6.4-8.2) gm/dl Albumin (3.4-5.0) gm/dl Globulin (2.5-4.0) gm/dl Albumin/Globulin Ratio (0.9-2) Procalcitonin (0-0.5) ng/ml TSH (0.300-4.500) uIu/ml Specimen Hemolysis Urine Color Urine Appearance (Clear) Urine pH (4.5-7.5) Ur Specific Lincoln (1.000-1.030) Urine Protein (Negative) Urine Glucose (UA) (Negative) Urine Ketones (Negative) Urine Blood (Negative) Urine Nitrite (Negative) Urine Bilirubin (Negative) Urine Urobilinogen (Negative) Ur Leukocyte Esterase (Negative) Urine WBC (Auto) (0-5) /hpf Urine RBC (Auto) (0-4) /hpf U Hyaline Cast (Auto) (0-5) /lpf U Epithel Cells (Auto) (0-5) /lpf Urine Bacteria (Auto) (Negative) Urine Yeast Diagnostic Findings Chest X-Ray 09/09/21 11:37 XR chest 1V portable CLINICAL HISTORY: weakness COMPARISON STUDY: Chest radiograph September 07, 2021. FINDINGS: No pneumothorax or pleural effusion is noted. There is severe emphysema. There is also possible underlying pulmonary fibrosis. Extensive bilateral mid and lower lung airspace opacities have increased since exam of September 07, 2021. IMPRESSION: Increase in bilateral mid and lower lung airspace opacities which favor pneumonia superimposed upon emphysema. Radiographic follow-up to ensure resolution is recommended. ACT 112: Negative or not required by law. Electronically signed by: Chace Latif M.D. 09/09/2021 12:22 PM PG Care Time/CCT Total # of Minutes Spent Total Time Spent with Patient: Total time spent is greater than 50% in coordination of care (as documented) at patient's floor/unit and/or counseling patient: Coding Level of Care Code 06556 Subseq Hosp Care Lvl 3 Diagnoses Pneumonia due to COVID-19 virus U07.1; J12.82 COPD (chronic obstructive pulmonary disease) J44.9 Hypoxia R09.02 Hyperlipidemia E78.5 Depression F32.A Allergic rhinitis J30.9
[2021-09-10] MEDS: CHOLECALCIFEROL 1,000 UNITS 25 MCG TAB PO SCH (09:42)
[2021-09-10] MEDS: ATORVASTATIN 10 MG TAB PO SCH (09:42)
[2021-09-10] MEDS: MONTELUKAST SODIUM 10 MG TABLET PO SCH (09:42)
[2021-09-10] MEDS: ASPIRIN 81 MG ECTAB PO SCH (09:42)
[2021-09-10] MEDS: ZINC SULFATE 220 MG CAPSULE PO SCH ×2 (09:43→20:41)
[2021-09-10] MEDS: dexAMETHasone 6 MG in SYRINGE 0 ML IV SCH (09:43)
[2021-09-10] MEDS: 2mg Daily x 14 days (eGFR 30-59 mL/min/1.73m2) PO SCH (09:43)
--- NOTE | 2021-09-10 09:44 | XRay Report ---
XR chest 1V portable CLINICAL HISTORY: f/u COMPARISON STUDY: Chest radiograph September 09, 2021. FINDINGS: There are severe emphysema. No pneumothorax or pleural effusion is noted. Bilateral mid and lower lung interstitial thickening and airspace opacities are noted. These have slightly improved. C ardiac size is normal. There is no evidence for pulmonary edema. IMPRESSION: 1. Bilateral mid and lower lung airspace opacities with interstitial thickening. These favor an infec tious process. Slightly improved since prior exam. 2. Severe emphysema. ACT 112: Negative or not required by law. Electronically signed by: Chace Latif M.D. 09/10/2021 9:43 AM
[2021-09-10] MEDS: UMECLIDINIUM/VILANTEROL 62.5/25MCG 7 PUFFS/INHALER INH SCH (09:45)
[2021-09-10] MEDS: SERTRALINE HCL 50 MG TABLET PO SCH (10:08)
--- NOTE | 2021-09-10 12:54 | Electrocardiogram Report ---
Test Reason : Blood Pressure : / mmHG Vent. Rate : 085 BPM Atrial Rate : 085 BPM P-R Int : 128 ms QRS Dur : 084 ms QT Int : 346 ms P-R-T Axes : 052 -72 054 degrees QTc Int : 411 ms Normal sinus rhythm Left anterior fascicular block Nonspecific T wave abnormality Abnormal ECG When compared with ECG of 07-SEP-2021 19:22, Nonspecific T wave abnormality has replaced inverted T waves in Anterior leads Confirmed by Alex Olivas ([id number]) on 09/10/2021 12:54:21 PM Referred By: Rene SCI Confirmed By:Alex Olivas
[2021-09-10] MEDS ORDERED: PSEUDOEPHEDRINE HCL 30 MG TAB PO PRN (15:30)
[2021-09-10] MEDS ORDERED: OXYMETAZOLINE 0.05% 30 ML BTL NAE ONE (15:46)
--- NOTE | 2021-09-10 16:29 | Pulmonology Progress Note ---
Date of Service September 10, 2021 Assessment & Plan (1) Pneumonia due to COVID-19 virus: Plan: COVID 19 pneumonia - does not appear to have co-infection at this time secondary to normal WBC and PCT - Decadron 6mg IV daily - Continue baricitinib for 14 days or until tubed/discharged - CPAP/BiPAP at night - HFNC wean to support SPO2 88-92% - Afrin nasal spray for congestion and saline sprays - He confirmed he would want intubation if indicated. He has a high likelihood of sudden decompensation. Prognosis is extremely grave at this time and his risk of mortality is likely at 40 to 50%. (2) COPD (chronic obstructive pulmonary disease): Plan: COPD- Scheduled nebulizers with levalbuterol, continue with Pulmicort Respules nebs q12, added Anoro elipta 6.25/25 - steroids as above - no role for Azithromycin at this time as he does not have hx of multiple exacerbations (3) Hypoxia: Plan: Hypoxia with respiratory failure - Support as above - High likelihood of intubation with underlying lung disease (4) Hyperlipidemia: Admission and Anticipated Discharge Date Admission Date: September 09, 2021 Subjective Patient seen and examined. Complaining of nasal congestion and shortness of breath. Denies chest pain. Oxygen currently on 90% FiO2 and high flow oxygen with saturations in the high 80s to low 90s. Review of Systems Review of Systems: All systems reviewed & are unremarkable except as noted in HPI & below Physical Exam Physical Exam: PHYSICAL EXAM: General: awake, alert, no apparent distress Head: Normocephalic, atraumatic ENT: PERRL, EOMI, no pharyngeal exudate, mucous membranes moist Neuro: AAO x 3, speech clear and appropriate, strength intact bilaterally 5/5, sensation intact and equal all extremities and dermatomes, no pronator drift Chest: equal rise and fall of the chest, fine crackles throughout lower lung serrato, no wheezing, decent air movement Cardiac: Regular rate and rhythm, telemetry reviewed, skin warm dry, peripheral pulses +2 no JVD, no murmur, no edema GI: NABS x 4 quadrants, soft, nontender to palpation, no rebound, guarding or tenderness : Spontaneously voiding, no pain, no CVA tenderness, Extremities: Normal inspection, no peripheral edema or erythema, calfs nontender to palpation Psych: Normal mood and affect Skin: no rash or erythema Results & Data Results & Data ([facility]) Vital Signs (Past 12 Hours) Vital Signs Temp Pulse Pulse Pulse Resp BP BP 09/10/21 16:20 36.8 C 64 23 09/10/21 15:29 79 28 H 09/10/21 12:20 80 20 09/10/21 11:53 79 28 H 09/10/21 11:52 36.6 C 73 25 H 134/74 09/10/21 10:49 77 24 09/10/21 10:10 36.8 C 09/10/21 09:30 72 23 105/81 09/10/21 09:00 69 25 H 125/76 09/10/21 08:30 70 28 H 113/63 09/10/21 08:00 74 27 H 127/82 09/10/21 07:30 68 26 H 120/72 09/10/21 07:00 60 29 H 123/65 09/10/21 06:30 74 24 104/74 09/10/21 06:07 65 16 09/10/21 06:00 65 18 132/76 09/10/21 05:30 63 25 H 09/10/21 05:00 63 24 124/71 09/10/21 04:30 65 26 H 102/61 BP Pulse Ox 09/10/21 16:20 126/71 93 09/10/21 15:29 98 09/10/21 12:20 88 L 09/10/21 11:53 09/10/21 11:52 88 L 09/10/21 10:49 90 09/10/21 10:10 09/10/21 09:30 91 09/10/21 09:00 90 09/10/21 08:30 90 09/10/21 08:00 84 L 09/10/21 07:30 89 L 09/10/21 07:00 91 09/10/21 06:30 88 L 09/10/21 06:07 93 09/10/21 06:00 96 09/10/21 05:30 73 L 09/10/21 05:00 90 09/10/21 04:30 92 vital signs, labs and imaging reviewed PG Care Time/CCT Total # of Minutes Spent Total Time Spent with Patient: Total time spent is greater than 50% in coordination of care (as documented) at patient's floor/unit and/or counseling patient: Coding Level of Care Code 62293 Subseq Hosp Care Lvl 3 Diagnoses Pneumonia due to COVID-19 virus U07.1; J12.82 COPD (chronic obstructive pulmonary disease) J44.9 Hypoxia R09.02 Hyperlipidemia E78.5
[2021-09-10] MEDS ORDERED: FUROSEMIDE INJ 20 MG/2 ML VIAL IV ONE (17:33)
[2021-09-10] MEDS: SODIUM CHLORIDE 0.65% NA SOLN 45 ML (OCEAN) SCH (20:39)
[2021-09-10] MEDS: ENOXAPARIN INJ 40 MG/0.4 ML SYR SQ SCH (20:39)
[2021-09-11] MEDS: LEVALBUTEROL HCL 0.63 MG/3 ML NEB NEB SCH ×2 (00:33→08:38)
[2021-09-11] MEDS ORDERED: ACETAMINOPHEN 325 MG TAB PO PRN (00:57)
[2021-09-11 08:39] LABS: Hematocrit (blood only) 45.3 % (42-52); Hemoglobin 15.5 g/dL (14.0-18.0); Mean Corpuscular Hemoglobin 30.2 pg (25-34); Mean Corpuscular Hgb Conc 34.2 g/dL (32-36); Mean Corpuscular Volume 88.1 fL (80-100); Platelet Count 162 K/uL (130-400); RDW Coefficient of Variation 13.6 % (11.5-14.5); RDW Standard Deviation 44.3 fL (36.4-46.3); Red Blood Count 5.14 M/uL (4.7-6.1); White Blood Count 10.55 K/uL (4.8-10.8)
[2021-09-11] MEDS: BUDESONIDE 0.5 MG/2 ML VIAL (PULMICORT) NEB SCH (08:39)
[2021-09-11] MEDS: ASPIRIN 81 MG ECTAB PO SCH (08:59)
[2021-09-11] MEDS: MONTELUKAST SODIUM 10 MG TABLET PO SCH (09:00)
[2021-09-11] MEDS: CHOLECALCIFEROL 1,000 UNITS 25 MCG TAB PO SCH (09:00)
[2021-09-11] MEDS: SERTRALINE HCL 50 MG TABLET PO SCH (09:00)
[2021-09-11] MEDS: ATORVASTATIN 10 MG TAB PO SCH (09:00)
[2021-09-11] MEDS: dexAMETHasone 6 MG in SYRINGE 0 ML IV SCH (09:00)
[2021-09-11] MEDS: ZINC SULFATE 220 MG CAPSULE PO SCH (09:00)
[2021-09-11] MEDS: SODIUM CHLORIDE 0.65% NA SOLN 45 ML (OCEAN) SCH (09:01)
[2021-09-11] MEDS: UMECLIDINIUM/VILANTEROL 62.5/25MCG 7 PUFFS/INHALER INH SCH (09:01)
[2021-09-11] MEDS: 2mg Daily x 14 days (eGFR 30-59 mL/min/1.73m2) PO SCH (09:05)
[2021-09-11 09:19] LABS: BUN Creatinine Ratio 44.2 (10-20); C Reactive Protein 0.74 mg/dl (0-0.29); Calcium 8.5 mg/dl (8.5-10.1); Creatinine Clr Calc Pharmacy 64.7 ml/min; Est GFR (African American) 85.1 ml/min; Est GFR (Non-African American) 73.4 ml/min; Potassium 4.3 mmol/L (3.5-5.1)
[2021-09-11] MEDS ORDERED: GLYCOPYRROLATE 0.2 MG/ML VIAL IV PRN (10:04)
[2021-09-11] MEDS ORDERED: LORazepam 0.5 MG/1 ML VIAL IV PRN (10:04)
--- NOTE | 2021-09-11 10:17 | Hospitalist Progress Note ---
Date of Service September 11, 2021 Assessment & Plan (1) Pneumonia due to COVID-19 virus: Plan: COVID 19 pneumonia treated with dexamethasone and baricitinib but getting worse, would need intubation to survive but does not want that change to comfort measures spoke with the patient with Dr. Preciado at the bedside he is on high flow, will taper off with comfort as goal (2) COPD (chronic obstructive pulmonary disease): Plan: stop nebulizers (3) Hypoxia: Plan: respiratory failure, does not want intubated, change to comfort measures Morphine q1 PRN (4) Hyperlipidemia: Plan: stop meds (5) Depression: Plan: stop meds (6) Allergic rhinitis: Plan: stop medications Plan: comfort care Admission and Anticipated Discharge Date Admission Date: September 09, 2021 Subjective met with patient and Dr. Preciado at the bedside patient declines intubation, he accepts that he is going to will transition to comfort measures, Morphine q1 PRN, stop other medications allow him to drink/eat for comfort, per RN he barely eats or drinks he is DNR/DNI Review of Systems Review of Systems: All systems reviewed & are unremarkable except as noted in Subjective Respiratory: + cough, + dyspnea and + dyspnea on exertion Physical Exam Physical Exam: General: thin, elderly, frail, ill appearing in respiratory distress Neck: supple, trachea midline, normal thyroid Lungs: + tachypnea, + accessory muscle use, in distress, decreased breath sounds Heart: regular S1 and S2, no murmur, peripheral pulses normal, capillary refill normal, no edema Abdomen: soft, NT, ND, + BS, no hepatomegaly, normal to percussion Extremities: normal in appearance, no cyanosis, no petechiae, strength is normal Neuro: awake, cooperative, moves all extremities, no focal motor deficits, CN II-XII intact Skin: warm, dry, no rash, normal turgor Psych: Awake, alert oriented x 3, flat affect Results & Data Results & Data ([facility]) Vital Signs (Past 12 Hours) Vital Signs Temp Pulse Pulse Pulse Resp BP BP 09/11/21 08:39 77 28 H 09/11/21 07:08 36.4 C L 69 26 H 135/71 09/11/21 03:41 36.6 C 75 20 141/81 H 09/11/21 03:26 89 24 09/11/21 00:34 77 26 H 09/10/21 23:28 36.8 C 75 20 158/83 H 09/10/21 23:25 74 28 H 09/10/21 22:19 77 Pulse Ox 09/11/21 08:39 89 L 09/11/21 07:08 88 L 09/11/21 03:41 90 09/11/21 03:26 96 09/11/21 00:34 89 L 09/10/21 23:28 91 09/10/21 23:25 89 L 09/10/21 22:19 Laboratory Results Laboratory Results - last 24 hr 09/11/21 09/11/21 08:15 08:15 WBC 10.55 RBC 5.14 Hgb 15.5 Hct 45.3 MCV 88.1 MCH 30.2 MCHC 34.2 RDW Std Deviation 44.3 RDW Coeff of Ronald 13.6 Plt Count 162 MPV 11.0 H Sodium 140 Potassium 4.3 Chloride 111 H Carbon Dioxide 19 L Anion Gap 10.0 BUN 43 H Creatinine 0.97 Est Cr Clr Drug Dosing 64.7 Est GFR ( Amer) 85.1 Est GFR (Non-Af Amer) 73.4 BUN/Creatinine Ratio 44.2 H Glucose 96 Calcium 8.5 C-Reactive Protein 0.74 H Medications Administered Current Inpatient Medications Acetaminophen (Acetaminophen 325 Mg Tab) 650 mg PO Q6H PRN PRN Reason: Pain Stop: 10/11/21 00:56 Last Admin: 09/11/21 01:22 Dose: 650 mg Documented by: Glycopyrrolate (Glycopyrrolate 0.2 Mg/Ml Vial) 0.2 mg IV Q4H PRN PRN Reason: Secretions or Pulm Congestion Stop: 10/11/21 10:03 Lorazepam (Ativan) 0.5 mg in 1 mls @ 1 mls/min IV Q4H PRN PRN Reason: Anxiety/Agitation Stop: 10/11/21 10:03 Morphine Sulfate (Morphine Sulfate 2 Mg/Ml Carp) 2 mg IV Q1H PRN PRN Reason: Dyspnea Stop: 09/25/21 10:02 PG Care Time/CCT Total # of Minutes Spent Total Time Spent: 32 Total Time Spent with Patient: Total time spent is greater than 50% in coordination of care (as documented) at patient's floor/unit and/or counseling patient: Coding Level of Care Code 39058 Subseq Hosp Care Lvl 3 Diagnoses Pneumonia due to COVID-19 virus U07.1; J12.82 COPD (chronic obstructive pulmonary disease) J44.9 Hypoxia R09.02 Hyperlipidemia E78.5 Depression F32.A Allergic rhinitis J30.9
[2021-09-11] MEDS: MoRPHine SULFATE 2 MG/ML CARP IV PRN ×7 (10:20→18:55)
--- NOTE | 2021-09-11 11:45 | Pulmonology Progress Note ---
Date of Service September 11, 2021 Assessment & Plan (1) 2019 novel coronavirus-infected pneumonia (NCIP): (2) Respiratory failure: Chronicity: acute on chronic Respiratory failure complication: hypoxia Qualified Code(s): J96.21 - Acute and chronic respiratory failure with hypoxia Plan: Impression: 80-year-old male with Covid pneumonitis and progressive ARDS in the setting of underlying COPD. Recommendations: 1. Met at the bedside with patient as well as with Dr. Anna. We discussed that the patient is failing current therapy and were unable to maintain oxygenation at an adequate goal. I presented him with the options of being intubated and going on the mechanical ventilator however in an 80-year-old patient with structural underlying lung disease, his outcomes would be quite guarded. I estimate his mortality at greater than 70%. He was also presented with the option of continuing current care and focusing more on a palliative approach with symptom control. The patient is in agreement with the second approach and does not want to pursue aggressive interventions such as intubation or mechanical ventilation. He spent some time speaking with Dr. Anna about his desires and things that would make him more comfortable. I think it is reasonable. Will defer to them about oxygen therapy and long-term goals. Transition to full palliative care may be reasonable. We will sign off at this point time. Feel free to contact us if we can be of additional assistance 35 minutes critical care time spent in end-of-life discussion with the patient and managing life-threatening illness. Admission and Anticipated Discharge Date Admission Date: September 09, 2021 Subjective Patient seen and examined. He is clinically deteriorated overnight. He is on high flow with inability to maintain oxygen saturations at the mid 85% range. See comments below. Review of Systems Review of Systems: Per hospitalist note Physical Exam Physical Exam: General: thin, elderly, frail, ill appearing in respiratory distress Neck: supple, trachea midline, normal thyroid Lungs: + tachypnea, + accessory muscle use, in distress, decreased breath sounds Heart: regular S1 and S2, no murmur, peripheral pulses normal, capillary refill normal, no edema Abdomen: soft, NT, ND, + BS, no hepatomegaly, normal to percussion Extremities: normal in appearance, no cyanosis, no petechiae, strength is normal Neuro: awake, cooperative, moves all extremities, no focal motor deficits, CN II-XII intact Skin: warm, dry, no rash, normal turgor Psych: Awake, alert oriented x 3, flat affect Results & Data Results & Data ([facility]) Vital Signs (Past 12 Hours) Vital Signs Temp Pulse Pulse Resp BP BP Pulse Ox 09/11/21 11:23 70 28 H 91 09/11/21 11:03 36.8 C 76 26 H 142/72 H 89 L 09/11/21 08:39 77 28 H 89 L 09/11/21 07:08 36.4 C L 69 26 H 135/71 88 L 09/11/21 03:41 36.6 C 75 20 141/81 H 90 09/11/21 03:26 89 24 96 09/11/21 00:34 77 26 H 89 L Critical Care Results & Data Vital Signs (Past 12 Hours) Vital Signs Temp Pulse Pulse Resp BP BP Pulse Ox 09/11/21 11:23 70 28 H 91 09/11/21 11:03 36.8 C 76 26 H 142/72 H 89 L 09/11/21 08:39 77 28 H 89 L 09/11/21 07:08 36.4 C L 69 26 H 135/71 88 L 09/11/21 03:41 36.6 C 75 20 141/81 H 90 09/11/21 03:26 89 24 96 09/11/21 00:34 77 26 H 89 L Lab & Micro Results (Past 24 Hours) RBC 5.14 M/uL (4.7-6.1) 09/11/21 WBC 10.55 K/uL (4.8-10.8) 09/11/21 Hgb 15.5 g/dL (14.0-18.0) 09/11/21 Hct 45.3 % (42-52) 09/11/21 MCV 88.1 fL (80-100) 09/11/21 MCH 30.2 pg (25-34) 09/11/21 MCHC 34.2 g/dL (32-36) 09/11/21 RDW Standard Deviation 44.3 fL (36.4-46.3) 09/11/21 RDW Coefficient of Variation 13.6 % (11.5-14.5) 09/11/21 Plt Count 162 K/uL (130-400) 09/11/21 MPV 11.0 fL (7.4-10.4) H 09/11/21 Na 140 mmol/L (136-145) 09/11/21 K 4.3 mmol/L (3.5-5.1) 09/11/21 Cl 111 mmol/L (98-107) H 09/11/21 CO2 19 mmol/L (21-32) L 09/11/21 Anion Gap 10.0 (3-11) 09/11/21 BUN 43 mg/dl (7-18) H 09/11/21 Creatinine 0.97 mg/dl (0.6-1.4) 09/11/21 Estimated GFR ( Amer) 85.1 ml/min 09/11/21 Estimated GFR (Non-Af Amer) 73.4 ml/min 09/11/21 BUN/Creatinine Ratio 44.2 (10-20) H 09/11/21 Glu 96 mg/dl (70-99) 09/11/21 Ca 8.5 mg/dl (8.5-10.1) 09/11/21 Calcium Level 8.5 mg/dl (8.5-10.1) 09/11/21 08:15 09/11/21 Microbiology 09/09/21 16:35 Urine Culture - Final Urine,Clean Catch No growth - less than 1,000 colonies/mL. I & O Totals 24 Hours 09/10/21 09/11/21 09/12/21 06:59 06:59 06:59 Intake Total 240 / 240 Output Total 950 / 950 1425 / 1425 Balance -950 / -950 -1185 / -1185 Cumulative 09/09/21 10:55 thru 09/11/21 05:56 Intake Total 240 Output Total 2375 Balance -2135 RT Ventilator Mngmt (Last Documented) Ventilator Ordered Settings Respiratory Rate 28 09/11/21 11:23 Fraction of Inspired Oxygen 100 09/11/21 11:23 Ventilator - PT Measurements Respiratory Rate 28 PG Care Time/CCT Total # of Minutes Spent Total Time Spent with Patient: Total time spent is greater than 50% in coordination of care (as documented) at patient's floor/unit and/or counseling patient: Coding Level of Care Code Critical Care 1st 30-74 mins Diagnoses 2019 novel coronavirus-infected pneumonia (NCIP) U07.1; J12.82 Respiratory failure J96.21 Chronicity: acute on chronic Respiratory failure complication: hypoxia
[2021-09-12] MEDS: MoRPHine SULFATE 2 MG/ML CARP IV PRN ×6 (04:37→21:59)
--- NOTE | 2021-09-12 09:40 | Hospitalist Progress Note ---
Date of Service September 12, 2021 Assessment & Plan (1) Pneumonia due to COVID-19 virus: Plan: COVID 19 pneumonia treated with dexamethasone and baricitinib but getting worse, would need intubation to survive but does not want that changed to comfort measures on 09/11 spoke with the patient with Dr. Preciado at the bedside comfortable on oxy mask, giving Morphine for any shortness of breath (2) COPD (chronic obstructive pulmonary disease): Plan: stop nebulizers (3) Hypoxia: Plan: respiratory failure, does not want intubated, change to comfort measures Morphine q1 PRN (4) Hyperlipidemia: Plan: stop meds (5) Depression: Plan: stop meds (6) Allergic rhinitis: Plan: stop medications Plan: comfort care Admission and Anticipated Discharge Date Admission Date: September 09, 2021 Subjective patient comfortable on oxy mask ate breakfast he feels short of breath, asking for Morphine told the RN to give him morphine whenever he feels short of breath Review of Systems Review of Systems: All systems reviewed & are unremarkable except as noted in Subjective Respiratory: + dyspnea Physical Exam Physical Exam: General: thin, elderly, frail, ill appearing in respiratory distress Neck: supple, trachea midline, normal thyroid Lungs: + tachypnea, + accessory muscle use, in distress, decreased breath sounds Heart: regular S1 and S2, no murmur, peripheral pulses normal, capillary refill normal, no edema Abdomen: soft, NT, ND, + BS, no hepatomegaly, normal to percussion Extremities: normal in appearance, no cyanosis, no petechiae, strength is normal Neuro: awake, cooperative, moves all extremities, no focal motor deficits, CN II-XII intact Skin: warm, dry, no rash, normal turgor Psych: Awake, alert oriented x 3, flat affect Results & Data Results & Data ([facility]) Medications Administered Current Inpatient Medications Acetaminophen (Acetaminophen 325 Mg Tab) 650 mg PO Q6H PRN PRN Reason: Pain Stop: 10/11/21 00:56 Last Admin: 09/11/21 01:22 Dose: 650 mg Documented by: Glycopyrrolate (Glycopyrrolate 0.2 Mg/Ml Vial) 0.2 mg IV Q4H PRN PRN Reason: Secretions or Pulm Congestion Stop: 10/11/21 10:03 Lorazepam (Ativan) 0.5 mg in 1 mls @ 1 mls/min IV Q4H PRN PRN Reason: Anxiety/Agitation Stop: 10/11/21 10:03 Morphine Sulfate (Morphine Sulfate 2 Mg/Ml Carp) 2 mg IV Q1H PRN PRN Reason: Dyspnea Stop: 09/25/21 10:02 Last Admin: 09/12/21 09:06 Dose: 2 mg Documented by: PG Care Time/CCT Total # of Minutes Spent Total Time Spent with Patient: Total time spent is greater than 50% in coordination of care (as documented) at patient's floor/unit and/or counseling patient: Coding Level of Care Code 74109 Subseq Hosp Care Lvl 2 Diagnoses Pneumonia due to COVID-19 virus U07.1; J12.82 COPD (chronic obstructive pulmonary disease) J44.9 Hypoxia R09.02 Hyperlipidemia E78.5 Depression F32.A Allergic rhinitis J30.9
[2021-09-13] MEDS: MoRPHine SULFATE 2 MG/ML CARP IV PRN ×4 (00:04→17:35)
--- NOTE | 2021-09-13 11:38 | Discharge Summary ---
Date of Service September 13, 2021 Admission HPI Per Admitting Provider This is an 80-year-old male who presents to [facility] emergency department from a correctional facility. Patient was previously seen in the emergency department on 09/07/21 complaining of worsening shortness of breath along with nausea, vomiting, and diarrhea. Patient does note that the symptoms have been ongoing for several months but he does note that over the past approximately 2 to 3 weeks his symptoms have become worse. He was seen in the emergency department at the aforementioned date where he was tested for COVID-19 and was noted to be positive. Labs on this day include a CBC her white blood cell count was 3.1. His hemoglobin and hematocrit were 13.6 and 39.6 respectively. Platelet count was low at 102,000 a chemistry profile showed a sodium of 142. Potassium was noted to be 4.5, BUN was slightly elevated at 30 and his creatinine was noted to be within normal range. A chest x-ray at this time showed moderate to extensive bilateral airspace opacities compatible with pneumonia. During his visit emergency department the patient did receive nebulizers, guaifenesin, and Solu-Medrol. Clinical improvement was noted and it was felt the patient was stable for discharge back to his correctional facility. He was discharged with Decadron 6 mg daily. Patient represented to the emergency department today secondary to worsening shortness of breath. The patient has been having increasing oxygen requirements and was on as many as 10 L via nasal cannula with worsening hypoxia noted and therefore he was sent back to the emergency department. I questioned the patient on numerous symptoms and he does not note any fevers. He says he does have shortness of breath along with some pleuritic chest pain. He denies any cough. At the present time he denies any abdominal pain and he also denies any nausea, vomiting, or diarrhea. A chest x-ray today showed increase in bilateral lower lung space airspace opacities compatible with pneumonia. Labs today included a CBC were white blood cell count, hemoglobin, hematocrit, and platelet count were all within normal range. Chemistry profile did show his sodium, potassium, and creatinine were within normal range. A CRP was performed and was noted to be 7.34 Since arrival to the emergency department the patient has been placed on high flow oxygen and he has been given 6 mg of intravenous Decadron. Due to his worsening symptomatology and increasing oxygen reqirements admission was recommended. At the time of my interview the patient was resting in bedside. He did not appear to be in any overt distress at the time of my interview and was able to converse with me without becoming markedly dyspneic. Principal Diagnosis COVID 19 pneumonia Respiratory failure Discharge Exam General: thin, elderly, frail, ill appearing in respiratory distress Neck: supple, trachea midline, normal thyroid Lungs: + tachypnea, + accessory muscle use, in distress, decreased breath sounds Heart: regular S1 and S2, no murmur, peripheral pulses normal, capillary refill normal, no edema Abdomen: soft, NT, ND, + BS, no hepatomegaly, normal to percussion Extremities: normal in appearance, no cyanosis, no petechiae, strength is normal Neuro: awake, cooperative, moves all extremities, no focal motor deficits, CN II-XII intact Skin: warm, dry, no rash, normal turgor Psych: Awake, alert oriented x 3, flat affect Discharge Data Allergies Allergy/AdvReac Type Severity Reaction Status Date / Time Penicillins Allergy Unknown ON SCI Verified 09/09/21 13:01 [facility] MED LIST Consultations 09/09/21 13:02 ED Decision to Admit Stat 09/09/21 15:54 Consult Pulmonology Routine Hospital Course (1) Pneumonia due to COVID-19 virus: COVID 19 pneumonia treated with dexamethasone and baricitinib but got worse, would need intubation to survive but does not want that he was struggling on 60L 100%, tachypneic, belly breathing, saturations 88% changed to comfort measures on 09/11 comfortable on 2L NC give Roxanol PRN (2) COPD (chronic obstructive pulmonary disease): stop nebulizers (3) Hypoxia: respiratory failure, does not want intubated, change to comfort measures Morphine q2 PRN (4) Hyperlipidemia: stop meds (5) Depression: stop meds (6) Allergic rhinitis: stop medications comfort care Total Time Total Time Spent Total Time Spent (In Minutes): 31 minutes Total Time Includes: Examination of the Patient, Discharge Planning, Medication Reconciliation and Communication With Other Providers Discharge Plan Discharge Items Patient Disposition: [facility] Facility Reason For Visit: COVID PNEUMONIA Discharge Diagnosis: COVID pneumonia Comfort measures Condition on Discharge: Serious Goals: comfort care only Activity: Per Instructions section Activity Comment: bedrest, comfort Non-emergency contact: Primary Care Provider Call non-emergency contact if: you have any medication questions and your symptoms worsen Follow-up/Referrals: Hubert CALVERT [Primary Care Provider] - Diet: Regular Addtl Attending Provider Instructions: Medications: - MORPHINE: 5mg (0.25mL) every 2 hours as needed for dyspnea patient transitioned to comfort measures on 09/11/21 has been comfortable, only needed Morphine 3 doses yesterday transfer back to [facility] to keep on comfort measures Pending Studies at Discharge: No Stand-Alone Forms: My [facility] Skilled Items Patient informed of condition?: Yes Discharge Level of Care: Other Communicable Disease: No Discharge Prognosis: Deteriorating Lines: None Urinary Catheter: No Medications and DC Order Prescriptions: New morphine concentrate 100 mg/5 mL (20 mg/mL) Solution 5 mg PO Q2HWA PRN (Reason: dyspnea) Qty: 15 RF: 0 Discontinued sertraline 50 mg tablet 50 mg PO QAM RF: 0 atorvastatin 10 mg tablet 10 mg PO QAM RF: 0 montelukast 10 mg tablet 10 mg PO QAM RF: 0 zinc sulfate [Zinc-220] 50 mg zinc (220 mg) Capsule 50 mg PO BID RF: 0 cholecalciferol (vitamin D3) [Vitamin D3] 25 mcg (1,000 unit) Tablet 25 mcg PO QAM RF: 0 dexamethasone 6 mg tablet 6 mg PO QAM RF: 0 aspirin 81 mg Tablet,Chewable 81 mg PO DAILY RF: 0 levalbuterol tartrate [Xopenex HFA] 45 mcg/actuation Hfa Aerosol Inhaler 2 inh INHALATION QID PRN (Reason: Shortness Of Breath) RF: 0 ondansetron 4 mg tablet,disintegrating 4 mg PO Q6H PRN (Reason: nausea and vomiting) Qty: 14 RF: 0 Discharge Orders: Discharge Order (Routine); Ordered 09/13/21 Ordered By: Zach Anna Admission Data Admit Date/Time: 09/09/21 13:32 Attending Provider: Zach Anna Admit Provider: Wei Ruff Primary Care Provider: Hubert CALVERT Other Providers: Wei Ruff ; Walter Snell Coding Level of Care Code D/C DAY MANAGEMENT >30 MINS Diagnoses Pneumonia due to COVID-19 virus U07.1; J12.82 COPD (chronic obstructive pulmonary disease) J44.9 Hypoxia R09.02 Hyperlipidemia E78.5 Depression F32.A Allergic rhinitis J30.9
[2021-09-13] MEDS: MoRPHine SULFATE 5 MG/0.25 ML UDP PO PRN ×2 (12:57→18:37)
== END 2021-09-13 20:34 | DRG 177 ==
LOC: ED 11:10 → SUATTDRO 13:32 → EDINP 13:32 → 2S 15:51